=== PATIENT | male | born 1965 | race Caucasian/White ===

== ENCOUNTER 2018-02-22 10:25 | Observation (INO) ==
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
[2018-02-22] MEDS ORDERED: Sod Chloride 0.9% Inj 1,000 ML IV.SIG ONE (12:26)
[2018-02-22 12:37] LABS: Baso % (Auto) 0.6 % (0.0-2.0); Eos % (Auto) 0.2 % (0.0-4.0); Hematocrit 43.1 % (39.0-51.0); Hemoglobin 14.5 gm/dL (13.0-17.0); Lymph # (Auto) 0.6 th/mm3 (1.0-4.8); Lymph % (Auto) 15.8 % (9.0-44.0); Mean Corpuscular HGB Conc 33.7 % (32.0-36.0); Mean Corpuscular Hemoglobin 30.2 pg (27.0-34.0); Mean Corpuscular Volume 89.8 fL (80.0-100.0); Mean Platelet Volume 7.1 fL (7.0-11.0); Mono # (Auto) 0.4 th/mm3 (0.0-0.9); Mono % (Auto) 12.1 % (0.0-8.0); Neut # (Auto) 2.5 th/mm3 (1.8-7.7); Neut % (Auto) 71.3 % (16.0-70.0); Platelet Count 195 th/mm3 (150-450); Red Cell Distribution Width 16.2 % (11.6-17.2); White Blood Count 3.6 th/mm3 (4.0-11.0)
[2018-02-22 12:51] LABS: Activated Partial Thrombo Time 25.1 sec (24.3-30.1)
[2018-02-22 12:55] LABS: Alanine Aminotransferase 173 U/L (12-78); Albumin 4.1 g/dL (3.4-5.0); Anion Gap 13 meq/L (5-15); Aspartate Aminotransferase 112 U/L (15-37); Blood Urea Nitrogen 6 mg/dL (7-18); Calcium 8.8 mg/dL (8.5-10.1); Carbon Dioxide 21.9 meq/L (21.0-32.0); Chloride 105 meq/L (98-107); Glomerular Filtration Rate Greater Than 89 mL/min (>89); Glucose,Random 106 mg/dL (74-106); Potassium 3.5 meq/L (3.5-5.1); Sodium 140 meq/L (136-145)
[2018-02-22 12:58] LABS: Alkaline Phosphatase 83 U/L (45-117); Total Protein 7.9 g/dL (6.4-8.2)
--- NOTE | 2018-02-22 13:05 | US ---
EXAM DATE: 02/22/2018 12:59 PM EDT AGE/SEX: 53 years / Male INDICATIONS: Left leg pain and swelling. CLINICAL DATA: This is the patient's initial encounter. Patient reports that signs and symptoms have been present for 1 day and indicates a pain score of 10/10. MEDICAL/SURGICAL HISTORY: . Patient denies any medial issues. None. COMPARISON: No prior exams available for comparison. TECHNIQUE: Venous ultrasound of both lower extremities was performed from the inguinal ligament to t he proximal calf. Real-time, color Doppler and spectral tracing, compression and augmentation techni ques were used. FINDINGS: Normal compression of the deep venous system from the inguinal region to the proximal calf . No echogenic clot is seen. Normal response of the venous system to augmentation and respiration. In the proximal to mid left calf there is a complex fluid collection measuring 6.8 x 2.7 x 1.4 cm. CONCLUSION: 1. No evidence of DVT. 2. Nonspecific complex fluid collection along the proximal to mid left calf measuring 6.8 x 2.7 x 1. 4 cm. Electronically signed by: Armond Lopez MD 02/22/2018 1:03 PM EDT
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
[2018-02-22] MEDS ORDERED: Bisacodyl 10 MG Supp RECTAL PRN (16:07)
[2018-02-22] MEDS ORDERED: Temazepam 15 MG Capsule PO PRN (16:07)
[2018-02-22] MEDS ORDERED: Acetaminophen 325 MG Tablet PO PRN (16:59)
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
--- NOTE | 2018-02-23 17:50 | ECG ---
Date Performed: 02/22/2018 Time Performed: 16:03:16 PTAGE: 53 years EKG: Sinus rhythm EARLY REPOLARIZATION BORDERLINE ECG NO PREVIOUS TRACING DOCTOR: Cruz Mendoza Interpretating Date/Time 02/23/2018 17:50:03
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
== END 2018-02-24 14:12 | disposition home or self-care (01) ==
LOC: NEPD 10:25 → NEPHCDU 10:25 → NEDA 10:25 → NEPHCDU 18:25
PROVIDERS: ADMIT Internal Medicine; ATTEND Internal Medicine
DX: I10 Essential (primary) hypertension; F17.210 Nicotine dependence, cigarettes, uncomplicated; S80.12XA Contusion of left lower leg, initial encounter; T79.A22A Traumatic compartment syndrome of left lower extremity, initial encounter; V28.0XXA Motorcycle driver injured in noncollision transport accident in nontraffic accident, initial encounter; R00.0 Tachycardia, unspecified; E66.3 Overweight